=== PATIENT | male | born 1985 | race Hispanic/Latino ===

== ENCOUNTER 2021-02-21 20:25 | Emergency (ER) | payer OTHER ==
[~2021-02-21] VITALS: Ht 180.3 cm; Wt 84.4 kg
[2021-02-21] MEDS ORDERED: NACL 0.9% 1000ML 1,000 ML IV ONE ×2 (21:00→21:52)
[2021-02-21] MEDS ORDERED: ACETAMINOPHEN 500 MG TABLET PO ONE (21:00)
[2021-02-21 21:06] LABS: APPEARANCE,URINE Clear (CLEAR); BILIRUBIN,URINE Negative (NEGATIVE); COLOR,URINE Yellow (YELLOW); GLUCOSE, URINE (UA) Negative (NEGATIVE); KETONES,URINE Negative (NEGATIVE); LEUKOCYTE ESTERASE ,URINE Negative (NEGATIVE); NITRATE,URINE Negative (NEGATIVE); OCCULT BLOOD,URINE Negative (NEGATIVE); PROTEIN,URINE Negative (NEGATIVE); UROBILINOGEN,URINE 0.2 mg/dL (0.2-1.0)
[2021-02-21 21:52] LABS: BASOPHILS % (AUTO) 0.3 % (0.0-5.0); EOSINOPHILS % (AUTO) 0.9 % (0.0-8.0); HEMATOCRIT 44.2 % (42-54); LYMPHOCYTES % (AUTO) 7.3 % (21.0-51.0); MEAN CORPUSCULAR HEMOGLOBIN 29.7 pg (27.0-33.0); MEAN CORPUSCULAR HGB CONC 34.4 g/dL (32.0-36.0); MEAN CORPUSCULAR VOLUME 86.3 fL (79-99); MONOCYTES % (AUTO) 3.5 % (3.0-13.0); NEUTROPHILS % (AUTO) 87.5 % (40.0-77.0); PLATELET COUNT (AUTO) 267 K/uL (130-400); RED BLOOD CELL COUNT(AUTO) 5.12 MIL/uL (4.50-6.20); RED CELL DISTRIBUTION WIDTH 12.9 % (11.0-15.5); WHITE BLOOD COUNT (AUTO) 9.8 K/uL (4.8-10.8)
[2021-02-21 22:01] LABS: CREATININE 0.9 mg/dL (0.5-1.5)
[2021-02-21 22:06] VITALS: BP 112/70
[2021-02-21 22:07] VITALS: BP_SYST 115; BP_SYST 122; BP_DIAS 76; BP_DIAS 78
[2021-02-21 22:08] LABS: ALBUMIN 3.5 g/dL (3.5-5.0); BILIRUBIN,TOTAL 1.3 mg/dL (0.2-1.0); TOTAL PROTEIN, SERUM 7.6 g/dL (6.0-8.3)
[2021-02-21] MEDS ORDERED: CIPROFLOXACIN HCL 500 MG TABLET PO SCH (22:30)
[2021-02-21] MEDS ORDERED: METRONIDAZOLE 500 MG TABLET PO SCH (22:30)
[2021-02-21] MEDS ORDERED: METRONIDAZOLE 250 MG TABLET ONE (22:46)
[2021-02-21] MEDS ORDERED: LEVOFLOXACIN 500 MG TABLET ONE (22:58)
[2021-02-21 23:13] LABS: POTASSIUM 3.5 mmol/L (3.5-5.1)
[2021-02-21] MEDS: LEVOFLOXACIN 500 MG TABLET PO SCH ×2 (23:29→23:55)
[2021-02-21] MEDS ORDERED: CIPR-278 PO (23:36)
[2021-02-21] MEDS ORDERED: ACET-2247 PO (23:36)
[2021-02-21] MEDS ORDERED: METR500T PO (23:36)
[2021-02-22 00:07] VITALS: BP 113/82
== END 2021-02-22 00:08 | disposition home or self-care (01) ==
LOC: EDH 20:43
DX: K52.9 Noninfective gastroenteritis and colitis, unspecified (principal)
CPT/HCPCS: 36415; 80053; 81003; 85025; 86140; 96360; 99284; J7030

== ENCOUNTER 2025-07-26 15:11 | Emergency (ER) | payer BC, OTHER ==
[~2025-07-26] VITALS: Ht 182.9 cm; Wt 98.0 kg
[~2025-07-26 15:11] MED LIST: ACET-2247 PO; CIPR-278 PO; METR500T PO
--- NOTE | 2025-07-26 15:15 | ERN ---
ED Note History of Present Illness Stated Complaint: ABD PAIN Chief Complaint: Abdominal Pain Time Seen by MD: 15:13 Dictation: PATIENT IS A 40-YEAR-OLD MALE COMING IN FROM A LOCAL URGENT CARE CLINIC WITH COMPLAINTS OF FEVER CHILLS AND PERIUMBILICAL PAIN WITH NAUSEA ONSET YESTERDAY. THE PAIN HAS GOTTEN WORSE TODAY. NO VOMITING NO CHANGE IN URINATION. HE STATES HE HAD BLOOD DRAWN AT THE CLINIC AND WAS TOLD HIS LEUKOCYTES WERE ELEVATED AND HE NEEDED THE CAT SCAN TO RULE OUT APPENDICITIS. Allergies: Coded Allergies: No Known Drug Allergies (Unverified Allergy, Unknown, 02/21/21) Home Meds Active Scripts Acetaminophen (Tylenol) 325 Mg Tablet, 650 MG PO QID, #50 TAB Prov:LANCE MELLO 02/21/21 Ciprofloxacin HCl (Cipro) 500 Mg Tablet, 500 MG PO BID, #14 TAB Prov:LANCE MELLO 02/21/21 Metronidazole (Flagyl) 500 Mg Tablet, 500 MG PO TID, #21 TAB Prov:LANCE MELLO 02/21/21 Past Medical History Past Medical History: No Pertinent History Surgical History: Tonsillectomy Family History: Negative Social History: Negative RN Note Reviewed/Agreed w/PFSH: Yes Review of System Dictation CONSTITUTIONAL: NEGATIVE EXCEPT FOR HPI FEVER CHILLS HEAD/FACE: NEGATIVE EXCEPT FOR HPI EENT: NEGATIVE EXCEPT FOR HPI RESPIRATORY: NEGATIVE EXCEPT FOR HPI GASTROINTESTINAL/ABDOMINAL: NEGATIVE EXCEPT FOR HPI PERIUMBILICAL PAIN WITH NAUSEA GENITOURINARY: NEGATIVE EXCEPT FOR HPI MUSCULOSKELETAL: NEGATIVE EXCEPT FOR HPI INTEGUMENTARY: NEGATIVE EXCEPT FOR HPI NEUROLOGICAL/PSYCH: NEGATIVE EXCEPT FOR HPI HEMATOLOGIC/LYMPHATIC: NEGATIVE EXCEPT FOR HPI ALL SYSTEMS NEGATIVE, EXCEPT NOTED ABOVE. 13 POINT REVIEW OF SYSTEMS ASSESSED AND ALL NEGATIVE EXCEPT FOR ABOVE. Initial Vital Sign VS Vital Signs Date Time Temp Pulse Resp B/P (MAP) Pulse Ox O2 Delivery O2 Flow Rate FiO2 07/26/25 15:12 98.2 99 18 129/86 100 07/26/25 17:05 Room Air* 0 21 Physical Exam Dictation VITAL SIGNS REVIEWED GENERAL APPEARANCE: ALERT, ORIENTED X 3, MILD ACUTE DISTRESS, WELL DEVELOPED, NOURISHED. HEAD AND FACE: NON-TRAUMATIC. EYES: PERRL, PINK CONJUNCTIVAS, EYELID NO TRAUMA, ANTERIOR CHAMBER WITH ARCUS SENILIS. EARS: PINNAS INTACT AND NO SIGNS OF TRAUMA OR ERYTHEMA EAR CANALS CLEAR AND NO DISCHARGE TM NO ERYTHEMA NOSE: NO DISCHARGE, NO BLEEDING. OROPHARYNX: MOUTH NORMAL, TONGUE PINK, PHARYNX CLEAR,NO ERYTHEMA, TONSILS NO EXUDATES, NO ABSCESSES NOTED, MUCOUS MEMBRANE MOIST NECK: SUPPLE, NON-TENDER, NO THYROMEGALY, NO MASSES, NO JVD, NO BRUITS BREAST:DEFERRED CHEST:NO TENDERNESS, NO CREPITUS, NO PARADOXICAL MOVEMENT, NO RETRACTIONS LUNGS:CLEAR, WELL-VENTILATED, SYMMETRIC, NO RALES, NO WHEEZING, NO RHONCHI, NO STRIDOR, GOOD BREATH SOUNDS BILATERALLY HEART: REGULAR RATE, REGULAR RHYTHM, NO MURMUR, NO GALLOPS VASCULAR: NO PERIPHERAL EDEMA, ABDOMEN: SOFT, POSITIVE BOWEL SOUNDS, NONDISTENDED, NO GUARDING, PERIUMBILICAL PAIN WITH MILD REBOUND TENDERNESS RECTAL: DEFERRED GENITAL: DEFERRED NEUROLOGICAL: NORMAL SPEECH, MOTOR FUNCTION INTACT, SENSORY FUNCTION INTACT MUSCULOSKELETAL: NECK NONTENDER, FULL RANGE OF MOTION, BACK NONTENDER, FULL RANGE OF MOTION, EXTREMITIES: NONTENDER, FULL RANGE OF MOTION SKIN: COLOR PINK, DRY, NO TURGOR, NO RASH, NO LACERATIONS, NO ABRASIONS, NO CONTUSIONS. LYMPHATIC: DEFERRED Results (Laboratory/Radiology) Laboratory/Radiology Laboratory Tests Test 07/26/25 15:22 White Blood Count 14.6 K/uL (4.8-10.8) H Red Blood Count 5.48 MIL/uL (4.50-6.20) Hemoglobin 16.2 g/dL (14.0-18.0) Hematocrit 48.5 % (42-54) Mean Corpuscular Volume 88.5 fL (79-99) Mean Corpuscular Hemoglobin 29.6 pg (27.0-33.0) Mean Corpuscular Hemoglobin Concent 33.4 g/dL (32.0-36.0) Red Cell Distribution Width 12.9 % (11.0-15.5) Platelet Count 405 K/uL (130-400) H Mean Platelet Volume 9.3 fL (7.5-10.5) Immature Granulocyte % (Auto) 0.7 % (0-1) Neutrophils (%) (Auto) 78.8 % (40.0-77.0) H Lymphocytes (%) (Auto) 13.3 % (21.0-51.0) L Monocytes (%) (Auto) 6.3 % (3.0-13.0) Eosinophils (%) (Auto) 0.6 % (0.0-8.0) Basophils (%) (Auto) 0.3 % (0.0-5.0) Neutrophils # (Auto) 11.5 K/uL (1.8-7.7) H Lymphocytes # (Auto) 1.9 K/uL (1.0-4.8) Monocytes # (Auto) 0.9 K/uL (0.1-1.0) Eosinophils # (Auto) 0.09 K/uL (0.00-0.70) Basophils # (Auto) 0.05 K/uL (0.00-0.20) Absolute Immature Granulocyte (auto 0.10 K/uL (0-1) Nucleated Red Blood Cells 0.0 % (0.0-0.19) Sodium Level 134 mmol/L (136-145) L Potassium Level 3.6 mmol/L (3.5-5.1) Chloride Level 95 mmol/L (101-111) L Carbon Dioxide Level 29 mmol/L (21-32) Blood Urea Nitrogen 15 mg/dL (7-18) Creatinine 0.9 mg/dL (0.5-1.3) Glomerular Filtration Rate Calc 111 mL/min (>90) Random Glucose 96 mg/dL (70-105) Total Calcium 8.9 mg/dL (8.5-10.1) Lipase 30 U/L (16-77) patic steatosis. GALLBLADDER AND BILE DUCTS: The gallbladder appears within normal limits. No radioopaque gallstones are seen. No biliary ductal dilatation is evident. PANCREAS: Unremarkable. SPLEEN: Unremarkable. ADRENAL GLANDS: Unremarkable. KIDNEYS, URETERS, AND BLADDER: The kidneys appear within normal limits. There is no hydronephrosis or hydroureter. No urinary calculi are seen. STOMACH AND BOWEL: Unremarkable appearance of the stomach and bowel. No evidence of bowel obstruction. No evidence suggesting enteritis or colitis. APPENDIX: No evidence of acute appendicitis on CT examination. PERITONEUM: No free fluid. No free air. LYMPH NODES: No lymphadenopathy is evident. REPRODUCTIVE: Unremarkable as visualized. VASCULATURE: No evidence of abdominal aortic aneurysm. BONES: No aggressive appearing osseous lesion. No acute osseous pathology evident. IMPRESSION: 1. Focal right lower lobe airspace disease may represent infectious etiology. 2. Hepatic steatosis. /[facility] Reviewed?: Yes ED Course ED Course Orders Procedure Category Date Status Time Cbc With Differential LAB 07/26/25 Complete 15:13 Urinalysis Profile LAB 07/26/25 In Process 15:13 Ct Abdomen/Pelvis CT 07/26/25 Resulted W/Contrast 15:13 0.9%Nacl 1000ml (Ns PHA 07/26/25 Complete 1000ml) 15:30 Ketorolac PHA 07/26/25 Complete Tromethamine 30mg/Ml 15:30 Ondansetron 4mg Inj PHA 07/26/25 Complete (Zofran 4mg Inj) 15:30 Lipase LAB 07/26/25 Complete 15:13 Basic Metabolic Panel LAB 07/26/25 Complete 15:13 Iohexol (Omnipaque) PHA 07/26/25 Complete 15:45 Current Medications Medications (Trade) Dose Ordered Sig/Tenisha Route PRN Reason Start Time Stop Time Status Last Admin Dose Admin Iohexol (Omnipaque) 75 ml STK-MED ONCE IV 07/26/25 15:45 07/26/25 15:45 DC Ketorolac Tromethamine (toRADol) 30 mg ONCE ONCE IVP 07/26/25 15:30 07/26/25 15:31 DC 07/26/25 17:30 Ondansetron HCl (zoFRAN 4MG INJ) 4 mg ONCE ONCE IVP 07/26/25 15:30 07/26/25 15:31 DC 07/26/25 17:30 Sodium Chloride 1,000 ml @ 0 mls/hr ONCE ONCE IV 07/26/25 15:30 07/26/25 15:31 DC 07/26/25 17:30 Vital Signs Date Time Temp Pulse Resp B/P (MAP) Pulse Ox O2 Delivery O2 Flow Rate FiO2 07/26/25 17:05 97.3 94 18 113/59 95 Room Air* 0 21 07/26/25 15:12 98.2 99 18 129/86 100 1755/SPOKE WITH PATIENT AT LENGTH HE IS AWARE OF THE CT FINDINGS. HE STATES HE HAS HAD NO SHORTNESS A BREATH NO COUGH Medical Decision Making MDM MDM: DIFFERENTIAL DIAGNOSIS: APPENDICITIS/DIVERTICULITIS/HERNIA/URINARY TRACT INFECTION/ELECTROLYTE IMBALANCE/DEHYDRATION/: RATIONALE: TESTS CONSIDERED AND ORDERED SECONDARY TO SHARED DECISION MAKING INCLUDE: LABS/RADIOLOGY PREVIOUS OUTSIDE RECORDS REVIEWED: OLD ER VISITS. RISK OF COMPLICATION AND/OR MORBIDITY OR MORTALITY OF PATIENT MANAGEMENT: NONE MEDICATIONS-PER MEDICATION RECONCILIATION NEED FOR HOSPITALIZATION: PATIENT DOES NOT MEET CRITERIA FOR HOSPITALIZATION. NONE NEED FOR EMERGENCY MAJOR/MINOR SURGERY: NO THERE ARE NO SOCIAL CONCERNS WITH THIS PATIENT. PRESCRIPTION DRUG MANAGEMENT BENTYL PRESCRIPTIONS WILL INCLUDE SYMPTOMATIC CARE PATIENT'S PRIOR EXTERNAL MEDICAL RECORDS FROM OTHER ER VISITS WERE REVIEWED BY ME INDICATED. PRIOR TESTING AND RESULTS FROM PREVIOUS VISITS WERE REVIEWED. PRIOR TESTS WERE TAKEN INTO ACCOUNT WITH MEDICAL DECISION MAKING AND RESOURCE UTILIZATION, INDEPENDENT HISTORIAN/HISTORIANS WERE USED TO OBTAIN COMPLETE MEDICAL HISTORY. I INDEPENDENTLY INTERPRETED THE TEST THAT WERE PERFORMED, RESULTS WERE REVIEWED BY ME AND CONSIDERED FINDINGS ON RADIOLOGY IF ORDERED. MEDICAL MANAGEMENT AND EXAMINATION INTERPRETATION DISCUSSIONS WERE HAD BY ME WITH OTHER QUALIFIED HEALTHCARE PROFESSIONALS INDICATED FOR THE PATIENT'S CARE. DX & DISP Disposition: Discharge Departure Impression: Primary Impression: Acute periumbilical pain Additional Impressions: Hyponatremia, Hypochloremia, Constipation, Fatty liver Condition: Stable Scripts Magnesium Hydroxide (Milk of Magnesia) 400 Mg/5 Ml Oral.susp 30 ML PO BID for constipation, #300 ML 0 Refills Prov: SHUBHAM ARGUELLES REPORTING DEVELOPER 07/26/25 Dicyclomine HCl (Bentyl) 20 Mg Tab 20 MG PO Q6HPRN PRN for ABDOMINAL PAIN, #20 TAB Prov: SHUBHAM ARGUELLES REPORTING DEVELOPER 07/26/25 Additional Instructions: FOLLOW-UP WITH PRIMARY CARE PROVIDER IN 1 TO 2 DAYS. TAKE MEDICATIONS DIRECTED HERE IN THE EMERGENCY ROOM. OKAY TO CONTINUE HOME MEDICATIONS UNLESS OTHERWISE DISCUSSED DURING YOUR VISIT IN THE EMERGENCY ROOM TODAY. RETURN TO YOUR NEAREST EMERGENCY ROOM IF SYMPTOMS WORSEN OR IF THERE IS NO IMPROVEMENT. CALL 911 IF YOU NEED IMMEDIATE ASSISTANCE. TAKE TYLENOL OR MOTRIN TOPP-MAN-SEUFNPC NEEDED AND IF NO CONTRAINDICATIONS ARE PRESENT. INCREASE ORAL HYDRATION. A WOUND CULTURE OR URINE CULTURE WAS ORDERED HERE IN THE EMERGENCY ROOM DEPARTMENT PLEASE FOLLOW-UP WITH PRIMARY CARE PROVIDER AND ADVISE THEM TO GET REPEAT PORTS FROM OUR FACILITY. IF YOU HAD ANY MANISH WRAP/SPLINTS THAT WERE APPLIED HERE, PLEASE DO NOT REMOVE THEM UNTIL YOU SEE YOUR PRIMARY CARE OR SPECIALTY. TAKE BENTYL DIRECTED FOR ABDOMINAL PAIN CRAMPING. TAKE MILK OF MAGNESIA TWICE A DAY WITH 8 OZ OF WATER FOR CONSTIPATION. SEE YOUR PRIMARY CARE DOCTOR FOR FOLLOW UP AND MANAGEMENT, TAKE YOUR DISCHARGE INSTRUCTIONS WITH YOU TO YOUR AN APPOINTMENT Referrals: SELF,REFERRAL (PCP) Time of Disposition: 18:01 I have reviewed the case, and I agree with, Diagnosis and Plan SHUBHAM ARGUELLES REPORTING DEVELOPER Jul 26, 2025 15:15
[2025-07-26 15:34] LABS: IMMATURE GRANULOCYTE ABSOLUTE 0.10 K/uL (0-1); NUCLEATED RED BLOOD CELLS 0.0 % (0.0-0.19); PLATELET COUNT (AUTO) 405 K/uL (130-400); RED BLOOD CELL COUNT(AUTO) 5.48 MIL/uL (4.50-6.20); RED CELL DISTRIBUTION WIDTH 12.9 % (11.0-15.5); WHITE BLOOD COUNT (AUTO) 14.6 K/uL (4.8-10.8)
[2025-07-26 15:45] LABS: CREATININE 0.9 mg/dL (0.5-1.3); GLOMERULAR FILTR. RATE CALC 111.0 mL/min (>90); GLUCOSE,RANDOM 96.0 mg/dL (70-105); SODIUM SERUM 134.0 mmol/L (136-145); UREA NITROGEN, BLOOD 15.0 mg/dL (7-18)
[2025-07-26] MEDS ORDERED: IOHEXOL-350 75 ML VIAL IV ONE (15:45)
--- NOTE | 2025-07-26 16:30 | NUR ---
ASSUMED CARE AT THIS TIME.
[2025-07-26] MEDS: 0.9%NACL 1000ML 1,000 ML IV ONE (17:30)
--- NOTE | 2025-07-26 17:45 | HMCIMG ---
EXAM: CT Abdomen and Pelvis with IV contrast CLINICAL HISTORY: FEVER CHILLS WITH PERIUMBILICAL PAIN TENDERNESS. TECHNIQUE: Axial computed tomography images of the abdomen and pelvis with intravenous contrast. CONTRAST: with intravenous contrast. COMPARISON: None provided. FINDINGS: LUNG BASES: Focal right lower lobe airspace disease may represent infectious etiology. LIVER: Hepatic steatosis. GALLBLADDER AND BILE DUCTS: The gallbladder appears within normal limits. No radioopaque gallstones are seen. No biliary ductal dilatation is evident. PANCREAS: Unremarkable. SPLEEN: Unremarkable. ADRENAL GLANDS: Unremarkable. KIDNEYS, URETERS, AND BLADDER: The kidneys appear within normal limits. There is no hydronephrosis or hydroureter. No urinary calculi are seen. STOMACH AND BOWEL: Unremarkable appearance of the stomach and bowel. No evidence of bowel obstruction. No evidence suggesting enteritis or colitis. APPENDIX: No evidence of acute appendicitis on CT examination. PERITONEUM: No free fluid. No free air. LYMPH NODES: No lymphadenopathy is evident. REPRODUCTIVE: Unremarkable as visualized. VASCULATURE: No evidence of abdominal aortic aneurysm. BONES: No aggressive appearing osseous lesion. No acute osseous pathology evident. IMPRESSION: 1. Focal right lower lobe airspace disease may represent infectious etiology. 2. Hepatic steatosis. /[place]
[2025-07-26] MEDS ORDERED: MAGN-157 PO (18:02)
[2025-07-26] MEDS ORDERED: DICY20TA2 PO (18:02)
[2025-07-26 18:03] LABS: APPEARANCE,URINE CLEAR (CLEAR); GLUCOSE, URINE (UA) NEGATIVE (NEGATIVE); LEUKOCYTE ESTERASE ,URINE NEGATIVE Leu/uL (NEGATIVE); NITRATE,URINE NEGATIVE (NEGATIVE); OCCULT BLOOD,URINE NEGATIVE (NEGATIVE)
[2025-07-26 18:04] VITALS: BP 99/52; PULSE 82; RESP 18; TEMP 97; O2SAT 96
[2025-07-26 18:04] LABS: ADD UA MICROSCOPIC YES
[2025-07-26 18:43] LABS: SQUAMOUS EPITHELIAL CELL,UR None Seen /HPF (0-2)
[2025-07-28] MEDS ORDERED: BISO5TAB19 PO (11:59)
[2025-07-28] MEDS ORDERED: FEXO-402 PO (12:02)
[2025-07-28] MEDS ORDERED: IBUP-2784 PO (12:02)
[2025-07-28] MEDS ORDERED: MONT-39 PO (12:02)
[2025-07-28] MEDS ORDERED: OMEP-420 PO (12:02)
== END 2025-07-26 18:54 | disposition home or self-care (01) ==
LOC: EDH 15:11
DX: R10.33 Periumbilical pain (principal); E87.1 Hypo-osmolality and hyponatremia; E87.8 Other disorders of electrolyte and fluid balance, not elsewhere classified; K59.00 Constipation, unspecified; K76.0 Fatty (change of) liver, not elsewhere classified; Z90.89 Acquired absence of other organs
CPT/HCPCS: 99284; 74177; 96374; 96361; 96375; 80048; 83690; 85025; 81001; 36415; J1885; J2405; Q9967